=== PATIENT | female | born 1960 | race Caucasian/White ===

== ENCOUNTER 2024-01-10 01:29 | Day surgery (SDC) | payer OTHER, SELFPAY ==
[2023-12-30 09:13] VITALS: BMI 35.2
[2024-01-10 07:46] VITALS: BP 120/95; PULSE 88; RESP 16; TEMP 36.5; O2SAT 99; BMI 35.0
[2024-01-10] MEDS: LACTATED RINGERS 1,000 ML 150 ML IV CONT (07:55)
--- NOTE | 2024-01-10 09:02 | PM.IMHP ---
H&P: HPI History of Present Illness Date/Time: 01/10/24 09:02 Chief Complaint: Family history of colorectal cancer. Narrative: This patient has family history of colorectal cancer. Her father had colorectal cancer at age 82. The patient is asymptomatic from GI standpoint, denies bleeding change in bowel habits or abdominal pain. Review of Systems Review of Systems: All systems reviewed & are unremarkable except as noted in HPI and below PMFSH Social History Social History Smoking status: Current every day smoker Tobacco type: cigarettes Substance use type: does not use Living arrangements: with family Spiritual care concerns: No Meds Home Medications and Allergies Home Medications Medication Instructions Recorded Confirmed Type levothyroxine 125 mcg tablet 125 mcg PO DAILY 12/30/23 01/10/24 History Allergies Allergy/AdvReac Type Severity Reaction Status Date / Time No Known Allergies Allergy Verified 01/10/24 07:44 Vital Signs Vital Signs - 24 hr 01/10/24 07:46 Temperature 97.7 F Pulse Rate 88 Respiratory Rate 16 Blood Pressure 120/95 H Pulse Oximetry 99 Oxygen Delivery Room Air Exam Const: General: cooperative and healthy appearing Resp: Effort & Inspection: normal respiratory effort and able to speak in complete sentences Auscultation: clear to auscultation bilaterally Cardio: Rate: regular rate Rhythm: regular rhythm GI: Inspection: normal to inspection GI Palp: No No hepatosplenomegaly present Auscultation: normal bowel sounds Rectal Exam: deferred Skin: General skin exam: normal color Psych: Appearance: grossly normal Mental Status: mental status grossly normal Assessment and Plan Assessment and plan (1) Family history of colon cancer: Code(s): Z80.0 - Family history of malignant neoplasm of digestive organs Status: Acute Assessment and Plan: The patient is deemed a good candidate for the procedure. Consent signed. Will proceed.
--- NOTE | 2024-01-10 09:21 | WPDANESEPPF ---
Anes - Initial Pre Proc Eval Procedure: Operation Date: 01/10/24 09:00 Proposed Procedures p Colonoscopy - Pa Fritz MD Date/Time: 01/10/24 09:21 Surgeon: Pa Fritz MD Pre Op Diagnosis: family hx of cancer Patient Data Age: 63 Gender: F Height: 1.52 m Weight: 81.4 kg Last Vital Signs Temp 97.7 F 01/10/24 07:46 Pulse 88 01/10/24 07:46 Resp 16 01/10/24 07:46 BP 120/95 H 01/10/24 07:46 Pulse Ox 99 01/10/24 07:46 O2 Del Method Room Air 01/10/24 07:46 Allergies Allergy/AdvReac Type Severity Reaction Status Date / Time No Known Allergies Allergy Verified 01/10/24 07:44 Home Medications Medication Instructions Recorded Confirmed Type levothyroxine 125 mcg tablet 125 mcg PO DAILY 12/30/23 01/10/24 History Patient hx anesthesia problems: none Family hx anesthesia problems: none Results Review: All pre-operative results and documents have been reviewed as part of the pre-operative evaluation. [facility] Social History Social History Smoking status: Current every day smoker Tobacco type: cigarettes Substance use type: does not use Living arrangements: with family Spiritual care concerns: No Anes - Eval Final PreProcedure Day of Procedure 01/10/24 09:21 Patient weight: obese Heart: regular rate and rhythm Lungs: clear to auscultation Airway: Mallampati scale class II Neurological: alert and oriented Last oral intake: >/= 8 hours ASA classification: III Emergent: no Anesthetic plan: proceed Anesthesia type and monitoring: general GIVS and standard monitoring Results Review: All pre-operative results and documents have been reviewed as part of the pre-operative evaluation. Informed Consent: The patient's anesthetic plan and its attendant risks and benefits were discussed with the patient/family/POA. Questions were solicited and answers provided to the satisfaction of the patient/family/POA.
[2024-01-10] MEDS: SIMETHICONE ORAL SUSPENSION 20 MG/0.3 ML 30 ML BOTTLE 0.6 ML IRRIGATION (09:39)
[2024-01-10 10:15] VITALS: BP 100/63; PULSE 71; RESP 14; O2SAT 100
[2024-01-10 10:25] VITALS: BP 103/69; PULSE 67; RESP 16; O2SAT 100
[2024-01-10 10:35] VITALS: BP 121/71; PULSE 70; RESP 16; O2SAT 100
== END 2024-01-10 10:50 | disposition home or self-care (01) ==
PROVIDERS: PCP Nurse Practitioner Family; Referring Provider Nurse Practitioner Family; Visit Provider Internal Medicine Gastroenterology
PROC: 0DJD8ZZ Inspection of Lower Intestinal Tract, Via Natural or Artificial Opening Endoscopic (ICD-10-PCS; CPT 45378; principal; 2024-01-10 09:00)
DX: Z12.11 Encounter for screening for malignant neoplasm of colon (principal); K63.5 Polyp of colon; K64.8 Other hemorrhoids; Z80.0 Family history of malignant neoplasm of digestive organs; F17.210 Nicotine dependence, cigarettes, uncomplicated; E66.9 Obesity, unspecified; Z68.35 Body mass index [BMI] 35.0-35.9, adult
CPT/HCPCS: 45390; 88305; J2704; J7120

== ENCOUNTER 2025-02-05 01:38 | Day surgery (SDC) | payer OTHER, SELFPAY ==
[2025-01-20 11:32] VITALS: BMI 36.9
--- OUTSIDE RECORDS SUMMARY | 2025-02-05 01:41 | XMS_ITS | Clinical Summary ---
Author Organization [facility] Address Formerly [facility] [place] [address] Care Team Providers Care Box Closing Machine Operator Name Role Phone Tylor Dumont SALESPERSON FLOOR COVERINGS Primary Care Provider Allergies No known active allergies Medications levothyroxine 125 MCG tablet Take 125 mcg by mouth every morning. Active Social History Tobacco Use Types Packs/Day Years Used Date Smoking Tobacco: Every Day Cigarettes 0.5 20 Smokeless Tobacco: Never Alcohol Use Standard Drinks/Week Comments Yes 6.7 (1 standard drink = 0.6 oz p ure alcohol) Comments No Sex and Gender Information Value Date Recorded Sex Assigned at Not on file Legal Sex Female 8:16 AM CDT Gender Identity Not on file Sexual Orientation Not on file Last Filed Vital Signs Vital Sign Reading Time Taken Comments Blood Pressure 136/80 12/12/2019 8:35 AM CDT Pulse 86 12/12/2019 8:35 AM CDT Temperature 36.5 C (97.7 F) 12/12/2019 8:35 AM CDT Respiratory Rate 18 12/12/2019 8:35 AM CDT Oxygen Saturation 97% 12/12/2019 8:35 AM CDT Inhaled Oxygen Concentration - - Weight 81.6 kg (180 lb) 12/12/2019 8:35 AM CDT Height 149.9 cm (4' 11) 12/12/2019 8:35 AM CDT Body Mass Index 36.36 12/12/2019 8:35 AM CDT Plan of Treatment Health Maintenance Due Date Last Done Comments Cervical Cancer Screening Pa p Smear (Age 30 to 64) Every 3 Years 1962 Colorectal Cancer Screening Colonoscopy (10 Years) 1962 Annual Physical 1965 Hepatitis C 1980 DTaP, Tdap and Td Vaccines ( 1 - Tdap) 1981 Pneumococcal Vaccine: 50+ Ye ars (1 of 2 - PCV) 1981 Cervical Cancer Screening Pa p with HPV Testing (Age 30 to 64) Every 5 Years 1992 Cervical Cancer Screening with HPV 1992 Mammogram Screening 2002 Zoster Vaccines (1 of 2) 2012 COVID-19 Vaccine ( - 2024-2 6 season) 2024 Influenza Adult (#1) 2024 RSV Immunization or 60+ Years (1 - 1-dose 75+ series) 2037 Hepatitis A Vaccines Aged Out No long er eligible based on patient's age to complete this topic Meningococcal B Vaccine Aged Out No l onger eligible based on patient's age to complete this topic Meningococcal Vaccine Aged Out No rehana deshaun eligible based on patient's age to complete this topic RSV Immunizations Under 20 Months Aged Out No longer eligible based on patient's age to complete this topic Insurance NA Care Teams Box Closing Machine Operator Relationship Specialty Start Date End Date Tylor Dumont FNP PCP - General Nurse Practitioner Family 12/12/19
--- OUTSIDE RECORDS SUMMARY | 2025-02-05 01:41 | XMS_ITS ---
Author Organization [facility] Address [address] [place] [address] Care Team Providers Care Utility Tech Name Role Phone Vy Amezcua MD Unavailable [phone] Sofía Moser NP Primary Care Provider [phone] Active Problems Problem Noted Date Diagnosed Date Annual physical exam 01/13/2025 Assessment & Plan (01/13/2025 7:59 AM PRODUCE LABORER): Slow transit constipation 05/17/2023 Assessment & Plan (05/17/2023 5:06 PM CDT): Add fiber supplement, probiotic Stay hydrated Discussed Fleet enema, may be helpful if things aren't moving after laxative Miralax I would prefer over senna (as it is a gentler osmotic laxative rather than a cathartic) Trulance trial as well Tobacco use 04/05/2022 Assessment & Plan (01/13/2025 7:59 AM PRODUCE LABORER): Taking bupropion to help with smoking cessation. She has cut back quite a bit Orders: buPROPion SR (ZYBAN) 150 mg 12 hr tablet; Take 1 tablet (150 mg total) by mouth 2 (two) times a day Assessment & Plan (10/10/2023 8:28 AM CDT): Has decreased tobacco use since being on the Zyban, was smoking about 1 ppd and now down to 2 packs per week. Assessment & Plan (04/05/2022 10:38 AM PRODUCE LABORER): On average smokes approximately 1/2 pack of cigarettes per day. She is interested in smoking cessation/medication. Discussed Zyban, education provided. Will send in to trial. Class 2 severe obesity due t o excess calories with serious comorbidity and body mass index (BMI) of 39.0 to 39.9 in adult 04/24/2021 Assessment & Plan (01/13/2025 7:59 AM PRODUCE LABORER): Finds that buproprion helps with cravings quite a bit. Wants to continue Assessment & Plan (10/04/2022 8:17 AM CDT): Healthy, low carbohydrate lifestyle and exercise for 150min/week recommended Assessment & Plan (04/05/2022 10:41 AM PRODUCE LABORER): Healthy, low carbohydrate lifestyle and exercise for 150min/week recommended Assessment & Plan (04/24/2021 4:47 PM PRODUCE LABORER): Food diary for 2 weeks. Look at carbohydrates, fats, and snack foods she is getting into.' Look at fluids she is taking. Note increase exercise as tolerated. Hoping to bring this up to 30 minute sessions 3 times a week. 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 Assessment & Plan (04/24/2021 4:38 PM PRODUCE LABORER): Continue to check your feet on a daily basis. Wear good shoes, avoid falling. Walk, do not shuffle. No high heels, flip flops, etc. Hypothyroidism, unspecified 01/19/2021 Assessment & Plan (01/13/2025 7:59 AM PRODUCE LABORER): Assessment & Plan (10/10/2023 8:27 AM CDT): Will recheck labs, continue with Synthroid 125 mcg daily. Assessment & Plan (10/04/2022 8:25 AM CDT): Will recheck labs, continue with Synthroid 125 mcg daily. Assessment & Plan (04/05/2022 10:40 AM PRODUCE LABORER): Due for recheck of level, ordered. Needs refill and wants brand name vs generic name as she feels it works better. Awaiting results so can send in adjustment if needed. Assessment & Plan (04/24/2021 4:36 PM PRODUCE LABORER): Continue with medications as ordered. Exercise as tolerated 3 times a week for 30 mnutes. Eat balanced, adequate fluids. Ovarian cancer on right 10/03/2020 Assessment & Plan (01/13/2025 7:59 AM PRODUCE LABORER): Orders: CA 125; Future Assessment & Plan (04/05/2022 10:39 AM PRODUCE LABORER): Has been in remission x 1 year Continues follow up labs and imaging per Oncology. Assessment & Plan (01/19/2021 7:23 PM PRODUCE LABORER): Continue with chemotherapy as directed by Oncologist. Current Treatment and Therapy Plans IV MAINTENANCE THERAPY PLAN* Plan Start Date:11/21/2020 Plan Provider:Мария Weber MD PhD Linked Problems Ovarian cancer on right (HCC ) Treatment Medications No medications scheduled. Past Treatment and Therapy Plans Oncology Chemotherapy Treatment Plan Name Start Date Discontinue Date Treatment Medications Discontinue Reason Plan Provider Cycles PACLItaxel / CARBOplatin (AUC 5) 21 Day Cycles - SLOPE TENDER 1 04/10/2021 CARBOplatin (by AUC:GOG) (PARAPLATIN)CA RBOplatin (PARAPLATIN) IVPB in 250 mL (by AUC: GOG)PACLitaxel (TAXOL)PACLIta xel (TAXOL) IVPB in 500 mL Provider Discretion Мария Weber MD PhD 6 of 6 cycles started Lifetime Dose Tracking * Chemical Lifetime Dose Automatic Entry Manual Entr y Fluoro Time 1.1 minutes 1.1 minutes 0 minutes Air kerma at the reference point (Ka,r) 0.5 mGy 0 .5 mGy 0 mGy DLP 4,586 mGycm 4,586 mGycm 0 mGycm Resolved Problems Problem Noted Date Diagnosed Date Resolved Date Class 2 obesity due to exces s calories without serious comorbidity in adult 04/24/202108/2021 Acute pain of right knee 04/24/2021 Assessment & Plan (04/24/2021 4:53 PM PRODUCE LABORER): Xray of right knee today. Ice alt. Heat 10-15 min. 2-3 times a day. No high heels. Tylenol As needed. Avoid climbing, stairs, ladders, no jumping activities. May use pascual wrap if needed for support. Chemotherapy management, encounter for 02/06/2021 01/13/2025 Morbid obesity with BMI of 45.0-49.9, adult 01/19/2021 01/19/2021 Assessment & Plan (01/19/2021 7:25 PM PRODUCE LABORER): Will refill thyroid med , Levothyroxine 125mcg one daily. Will get TSH level in 3 months. Localized adiposity of abdomen 01/19/2021 01/13/2025 Assessment & Plan (01/19/2021 7:29 PM PRODUCE LABORER): Encouraged to eat balanced. Not to diet at this time. Encouraged to not worry about weight at this time do to cancer treatment. Adnexal mass 09/25/2020 01/13/2025 Overview (09/25/2020): Added automatically from request for surgery [id number] Assessment & Plan (01/19/2021 7:21 PM PRODUCE LABORER): Continues with care by Oncology Had CT recently showing no issues. Encouraged her to finish Chemo and follow up with specialist..
--- OUTSIDE RECORDS SUMMARY | 2025-02-05 01:41 | XMS_ITS | Clinical Summary ---
Author Organization [facility] C Address [address] [place] [address] Care Team Providers Care Automotive Design Layout Drafter Name Role Phone Vy Amezcua MD Unavailable [phone] Sofía Moser NP Primary Care Provider Allergies No known active allergies Medications levothyroxine (SYNTHROID) 125 mcg tablet TAKE 1 TABLET BY MOUTH SIGNALS ANALYST BEFORE BREAKFAST 90 tablet 1 01/12/20 25 Active buPROPion SR (ZYBAN) 150 mg 12 hr tabletIndicatio ns:Tobacco use Take 1 tablet (150 mg total) by mouth 2 (two) times a day 180 tablet 3 01/14/20 25 Active ibuprofen (ADVIL,MOTRIN) suspension 100 mg/5 mL Take by mouth every 4 (four) hours as needed for pain 025 Discontinued( erapy completed) benzonatate (TESSALON) 100 mg capsuleIndicati ons:Cough Take 1 capsule (100 mg total) by mouth 3 (three) times a day as needed for cough 42 capsule 01/16/20 23 025 Discontinued( erapy completed) plecanatide (Trulance) 3 mg tabletIndicatio ns:Slow transit constipation Take 1 tablet (3 mg total) by mouth daily 6 tablet 03/29/20 24 11/26/2 025 Discontinued(Th erapy completed) buPROPion SR (ZYBAN) 150 mg 12 hr tabletIndicatio ns:Tobacco use TAKE 1 TABLET BY MOUTH TWICE A DAY 200 tablet 06/23/19 025 Discontinued(Re order) levothyroxine (SYNTHROID) 125 mcg tablet TAKE 1 TABLET (125 MCG TOTAL) BY MOUTH SIGNALS ANALYST BEFORE BREAKFAST 30 tablet 12/17/19 025 Discontinued Active Problems Problem Noted Date Diagnosed Date Annual physical exam 01/13/2025 Assessment & Plan (01/13/2025 7:59 AM PRESSED OR BLOWN GLASS WORKER): Slow transit constipation 05/17/2023 Assessment & Plan (05/17/2023 5:06 PM CDT): Add fiber supplement, probiotic Stay hydrated Discussed Fleet enema, may be helpful if things aren't moving after laxative Miralax I would prefer over senna (as it is a gentler osmotic laxative rather than a cathartic) Trulance trial as well Tobacco use 04/05/2022 Assessment & Plan (01/13/2025 7:59 AM PRESSED OR BLOWN GLASS WORKER): Taking bupropion to help with smoking cessation. [...] week. Assessment & Plan (04/05/2022 10:38 AM PRESSED OR BLOWN GLASS WORKER): On average smokes approximately 1/2 pack of cigarettes per day. She is interested in smoking cessation/medication. Discussed Zyban, education provided. Will send in to trial. Class 2 severe obesity due t o excess calories with serious comorbidity and body mass index (BMI) of 39.0 to 39.9 in adult 04/24/2021 Assessment & Plan (01/13/2025 7:59 AM PRESSED OR BLOWN GLASS WORKER): Finds that buproprion helps with cravings quite a bit. Wants to continue Assessment & Plan (10/04/2022 8:17 AM CDT): Healthy, low carbohydrate lifestyle and exercise for 150min/week recommended Assessment & Plan (04/05/2022 10:41 AM PRESSED OR BLOWN GLASS WORKER): Healthy, low carbohydrate lifestyle and exercise for 150min/week recommended Assessment & Plan (04/24/2021 4:47 PM PRESSED OR BLOWN GLASS WORKER): Food diary for 2 weeks. Look at carbohydrates, fats, and snack foods she is getting into.' Look at fluids she is taking. Note increase exercise as tolerated. Hoping to bring this up to 30 minute sessions 3 times a week. 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 Assessment & Plan (04/24/2021 4:38 PM PRESSED OR BLOWN GLASS WORKER): Continue to check your feet on a daily basis. Wear good shoes, avoid falling. Walk, do not shuffle. No high heels, flip flops, etc. Hypothyroidism, unspecified 01/19/2021 Assessment & Plan (01/13/2025 7:59 AM PRESSED OR BLOWN GLASS WORKER): Assessment & Plan (10/10/2023 8:27 AM CDT): Will recheck labs, continue with Synthroid 125 mcg daily. Assessment & Plan (10/04/2022 8:25 AM CDT): Will recheck labs, continue with Synthroid 125 mcg daily. Assessment & Plan (04/05/2022 10:40 AM PRESSED OR BLOWN GLASS WORKER): Due for recheck of level, ordered. Needs refill and wants brand name vs generic name as she feels it works better. Awaiting results so can send in adjustment if needed. Assessment & Plan (04/24/2021 4:36 PM PRESSED OR BLOWN GLASS WORKER): Continue with medications as ordered. Exercise as tolerated 3 times a week for 30 mnutes. Eat balanced, adequate fluids. Ovarian cancer on right 10/03/2020 Assessment & Plan (01/13/2025 7:59 AM PRESSED OR BLOWN GLASS WORKER): Orders: CA 125; Future Assessment & Plan (04/05/2022 10:39 AM PRESSED OR BLOWN GLASS WORKER): Has been in remission x 1 year Continues follow up labs and imaging per Oncology. Assessment & Plan (01/19/2021 7:23 PM PRESSED OR BLOWN GLASS WORKER): Continue with chemotherapy as directed by Oncologist. Resolved Problems Problem Noted Date Diagnosed Date Resolved Date Class 2 obesity due to exces s calories without serious comorbidity in adult 04/24/202108/2021 Acute pain of right knee 04/24/2021 Assessment & Plan (04/24/2021 4:53 PM PRESSED OR BLOWN GLASS WORKER): Xray of right knee today. Ice alt. Heat 10-15 min. 2-3 times a day. No high heels. Tylenol As needed. Avoid climbing, stairs, ladders, no jumping activities. May use pascual wrap if needed for support. Chemotherapy management, encounter for 02/06/2021 01/13/2025 Morbid obesity with BMI of 45.0-49.9, adult 01/19/2021 01/19/2021 Assessment & Plan (01/19/2021 7:25 PM PRESSED OR BLOWN GLASS WORKER): Will refill thyroid med , Levothyroxine 125mcg one daily. Will get TSH level in 3 months. Localized adiposity of abdomen 01/19/2021 01/13/2025 Assessment & Plan (01/19/2021 7:29 PM PRESSED OR BLOWN GLASS WORKER): Encouraged to eat balanced. Not to diet at this time. Encouraged to not worry about weight at this time do to cancer treatment. Adnexal mass 09/25/2020 01/13/2025 Overview (09/25/2020): Added automatically from request for surgery [id number] Assessment & Plan (01/19/2021 7:21 PM PRESSED OR BLOWN GLASS WORKER): Continues with care by Oncology Had CT recently showing no issues. Encouraged her to finish Chemo and follow up with specialist.. Encounters Date Type Department Care Team Description 01/13/2025 7:30 AM PRESSED OR BLOWN GLASS WORKER Office Visit [facility] Primary Care at [address] [address] Krystal Galvan NP Annual physical exam (Primary Dx); Visit for screening mammogram; Class 2 severe obesity due to excess calories with serious comorbidity and body mass index (BMI) of 39.0 to 39.9 in adult; Acquired hypothyroidism; Ovarian cancer on right (HCC); Screening for deficiency anemia; Screening for metabolic disorder; Lipid screening; Thyroid disorder screen; Screening for diabetes mellitus; Tobacco use from Last 3 Months Immunizations Immunization Administration Dates Next Due Influenza, Unspecified 02/18/2023(Deferr ed: Patient Refused),10/04/2022(Deferred: Patient Refused),02/18/2022(Deferred: Patient Refused),02/18/2022(Deferred: Patient Refused),04/18/2021(Deferred: Patient Refused),02/18/2021(Deferred: Patient Refused),01/03/2020(Deferred: Patient Refused) Moderna SARS-CoV-2 Monovalen t Vaccination (12+ YRS) 11/17/2020 Surgical History Surgery Date Site/Laterality Comments DILATION AND CURETTAGE, DIAGNOSTIC / THERAPEUTIC 02/18/2002 - 02/17/2003 for miscarriage at 16 weeks BREAST BIOPSY 02/18/1997 - 02/17/1998 Left breast, benign cyst CERVIX LESION DESTRUCTION 02/18/1981 - 02/17/1982 PORT PLACEMENT CHEST >5 YEARS 10/28/2020 N/A HYSTERECTOMY ABDOMINAL SURGERY 09/26/2020 Medical History Medical History Date Comments Hypothyroidism Ovarian cancer (HCC) History of chemotherapy Family History Medical History Relation Name Comments Cancer Father Rafael Mc Colon cancer Father Rafael Mc Breast cancer Neg Hx Ovarian cancer Neg Hx Uterine cancer Neg Hx Relation Name Status Comments Father Rafael Mc Mother Alive Social History Tobacco Use Types Packs/Day Years Used Date Smoking Tobacco: Former Cigarettes 0.5 5 Passive Smoke Exposure: Current Smokeless Tobacco: Never Comments:quit for 2 yrs, the n restarted 2018 Alcohol Use Standard Drinks/Week Comments Yes 0 (1 standard drink = 0.6 oz pur e alcohol) socially AUDIT-C Answer Date Recorded Q1: How often do you have a drink containing alc ohol? Monthly or less 08/15/2021 Q2: How many drinks containi ng alcohol do you have on a typical day when you are drinking? 1 or 2 08/15/2021 Q3: How often do you have si x or more drinks on one occasion? Less than monthly 08/15/2021 PHQ-2 Answer Date Recorded PHQ-2 Total Score (If total score is 3 or more points, staff should administer the PHQ-9) 0 01/13/2025 Comments No Sex and Gender Information Value Date Recorded Sex Assigned at Not on file Legal Sex Female 3:36 PM PRESSED OR BLOWN GLASS WORKER Gender Identity Not on file Sexual Orientation Not on file Obstetrics History Para Term AB IAB SAB Ectopic Multiple Livin g Live Births 4 3 3 3 Date Outcome GA Total Labor Labor/2nd/3rd Weight Sex Type Anes PTL Val A1 A5 Name Clin Term Term Term Comments x3 Last Filed Vital Signs Vital Sign Reading Time Taken Comments Blood Pressure 124/76 01/13/2025 7:39 AM PRESSED OR BLOWN GLASS WORKER Pulse 84 01/13/2025 7:39 AM PRESSED OR BLOWN GLASS WORKER Temperature 36.4 C (97.5 F) 01/13/2025 7:39 AM PRESSED OR BLOWN GLASS WORKER Respiratory Rate 18 01/13/2025 7:39 AM PRESSED OR BLOWN GLASS WORKER Oxygen Saturation 99% 01/13/2025 7:39 AM PRESSED OR BLOWN GLASS WORKER Inhaled Oxygen Concentration - - Weight 91.4 kg (201 lb 6.4 oz) 01/13/2025 7:39 A M PRESSED OR BLOWN GLASS WORKER Height 152.4 cm (5') 01/13/2025 7:39 AM PRESSED OR BLOWN GLASS WORKER Body Mass Index 39.33 01/13/2025 7:39 AM PRESSED OR BLOWN GLASS WORKER Plan of Treatment Health Maintenance Due Date Last Done Comments DTaP/Tdap/Td Vaccine (1 - Tdap) 1973 Hepatitis B Screening 1980 Zoster Vaccine (1 of 2) 2012 Covid-19 Vaccine (3 - Moderna risk series) 12/15/2020 11/17/2020, 10/10/2020 Breast Cancer Screening-Mammogram 06/24/2024 06/25/2023, 01/16/2022, 12/18/2021 Colon Cancer Screening-Colonoscopy 01/09/2025 01/10/2024, 03/28/2018 Depression Screening 01/13/2026 01/13/2025, 10/10/2023, 05/15/2023, Additional history exists Regular Well Visit/Exam 18-64 01/13/2026 01/13/2025, 10/10/2023 Cervical Cancer Screening Discontinued 09/22/2020 Hepatitis C Screening Completed 04/05/2022 Influenza Vaccine Discontinued Pneumococcal vaccine <65 Aged Out No longer eligible based on patient's age to complete this topic Medical Devices Implanted Type Area Rubber Curer Device Identifier Shelf Expiration Date Model / Serial / Lot [employer] [id number] Xcela 8fr 1.6mm 1 Lumen Power Injectable Attach Catheter Fill - [id number] Implanted:Qty: 1 on 10/28/2020 at [facility] [employer] 08/16/2025 [id number] / / [id number] Procedures Procedure Name Priority Date/Time Associated Diagnosis Comments HM COLONOSCOPY Routine 01/10/2024 8:19 AM PRESSED OR BLOWN GLASS WORKER DIAGNOSTIC MAMMOGRAM BILATERAL W JAC[place]TO Schedule Routine, Read Routine (OP Routine) 06/25/2023 9:12 AM CDT Breast mass, left HEPATITIS C ANTIBODY Routine 04/05/2022 9:06 AM PRESSED OR BLOWN GLASS WORKER Encounter for hepatitis C screening test for low risk patient PAP ONLY Routine 09/22/2020 2:20 PM CDT Routine gynecological examination from Last 3 Months or Most Recently Relevant to Health Maintenance Results * HM COLONOSCOPY (01/10/2024 8:19 AM PRESSED OR BLOWN GLASS WORKER) Pa Fritz MD HEALTH MAINTENANCE Fin al Result * Diagnostic Mammogram Bilateral [place] (06/25/2023 9:12 AM CDT) Anatomical Region Laterality Modality Breast Bilateral Mammography 06/25/2023 9:25 AM CDT Narrative 06/25/2023 9:30 AM CDT EXAM DESCRIPTION: US BREAST LEFT LIMITED; DIAGNOSTIC MAMMOGRAM BILATERAL W JACINTO REASON FOR STUDY: 63-year-old female presents for follow-up of a probably benign left breast mass and for annual right screening mammogram. COMPARISON: 07/18/2022, 01/16/2022, 12/18/2021 TECHNIQUE: CC and MLO views of the bilateral breasts were obtained with digital technique using breast tomosynthesis with C view. Limited ultrasound of the left breast was performed with grayscale and color Doppler. FINDINGS: DENSITY: There are scattered areas of fibroglandular density. MAMMOGRAM FINDINGS: The probably benign 4 mm oval circumscribed mass at the 5 o'clock position of the left breast, middle depth, has not suspiciously changed. There is also an unchanged benign left intramammary lymph node at the 3 o'clock position, middle depth. There is no new suspicious finding in either breast on mammogram. ULTRASOUND FINDINGS: Targeted ultrasound of the left breast at 5 o'clock, 5 cm from the nipple demonstrates a 3 x 4 x 4 mm circumscribed mass with mixed hypoechoic and anechoic internal echotexture, no posterior acoustic enhancement or shadowing, and no internal blood flow on color Doppler. This mass has not suspiciously changed in size or appearance since December 2021. IMPRESSION: 1. Unchanged probably benign 4 mm mass at the 5 o'clock position of the left breast (5 cm from the nipple). This is favored to represent a benign complicated cyst. Follow-up left diagnostic mammogram and left breast ultrasound in 6 months are recommended to assess for continued stability. 2. No mammographic evidence of malignancy in the right breast. Recommend screening mammography of the right breast in 1 year. BIRADS: 3 - Probably benign finding, short-interval follow-up suggested. The patient has been notified of these results and recommendations. THIS IS AN ELECTRONICALLY VERIFIED FINAL REPORT 06/25/2023 9:30 AM - Electronically signed by Temo Romano M.D. MD: Report ID: [id number] Reading Location: [facility] Tyron Pearson MD IMG MAMMO PROCEDURES Fin al Result * Hepatitis C antibody (04/05/2022 9:06 AM PRESSED OR BLOWN GLASS WORKER) Hep C Ab Nonreactive Nonreactive [facility] Comment: Interpretive Data Nonreactive: Antibodies to HCV not detected. Does NOT exclude the possibility of recent exposure to HCV. Equivocal: Equivocal for HCV antibodies. Supplemental molecular testing will be automatically performed to determine infection status in accordance with current CDC screening recommendations. Reactive: Positive for HCV antibodies. This may represent current or past HCV infection. Supplemental molecular testing will be automatically performed to determine current infection status in accordance with current CDC screening recommendations. Interpretive data was last revised on 2019. Blood 04/05/2022 9:06 AM PRESSED OR BLOWN GLASS WORKER 04/05/2022 2:42 PM PRESSED OR BLOWN GLASS WORKER Sofía Moser NP LAB MICROBIOLOGY - GENERAL ORDER JUSTINA Final Result [facility] [id number] Department [place] [address] * Pap Only (09/22/2020 2:20 PM CDT) Pathologist [facility] CLINICAL INFORMATION: Roni Selby Comment:Routine exam LMP Roni Selby Comment:NA Previous Pap Roni Selby Comment:NONE GIVEN Prev. Bx Roni Selby Comment:NONE GIVEN SOURCE: Roni Selby Comment:Cervix, Endocervix Pap, specimen adequacy Roni Selby Comment: Satisfactory for evaluation. Endocervical/transformation zone component present. Age and/or menstrual status not provided HPV interp Roni Selby Comment:Negative for intraep ithelial lesion or malignancy. Infection: Roni Selby Comment: Shift in vaginal jessica suggestive of bacterial vaginosis. Barrel Filler Head Juan Vicente Comment: KMK, CT(ASCP) CT Screening location: [facility] [place] [address] [address] Review mapping specialist Roni Selby Comment: AMW, CT(ASCP) CT screening location: [place] [address] [address] [id number] Comment [facility]ster[facility] Selby Comment: EXPLANATORY NOTE: The Pap is a screening test for cervical cancer. It is not a diagnostic test and is subject to false negative and false positive results. It is most reliable when a satisfactory sample, regularly obtained, is submitted with relevant clinical findings and history, and when the Pap result is evaluated along with historic and current clinical information. Swab 09/22/2020 2:20 PM CDT 09/23/2020 3:35 AM CDT Sarah Cardoza NP LAB CYTOLOGY ORDERABLES Final Result [facility] [address] [id number] from Last 3 Months or Most Recently Relevant to Health Maintenance Insurance PPO T SELECT AETNA SIG [id number] AETNA SELECT Advance Directives For more information, please contact: [phone] * Full Code (Latest Code Status on File) Date Activated Date Inactivated Comments 10/28/2020 11:51 AM 10/28/2020 6:09 PM * Full Code Date Activated Date Inactivated Comments 09/26/2020 9:34 PM 09/29/2020 8:04 PM * Full Code Date Activated Date Inactivated Comments 09/25/2020 7:05 PM 09/26/2020 9:34 PM Care Teams Automotive Design Layout Drafter Relationship Specialty Start Date End Date Sofía Moser NP PCP - General Family Medicine 04/05/22 Vy Amezcua MD Consulting Physician Obstetrics and Gynecology 01/23/21
[2025-02-05 09:52] VITALS: BP 142/93; PULSE 81; RESP 16; TEMP 36.3; O2SAT 100; BMI 38.0
[2025-02-05] MEDS: LACTATED RINGERS 1,000 ML 150 ML IV CONT (10:13)
--- NOTE | 2025-02-05 10:25 | P.HP_ITS ---
H&P: HPI History of Present Illness Date/Time: 02/05/25 10:25 Chief Complaint: Family history of colon cancer-history of sessile serrated polyps Narrative: Last year the patient underwent resection of 2 sessile serrated lesions in the ascending and descending colon respectively. She comes today for follow-up colonoscopy. Review of Systems Review of Systems: All systems reviewed & are unremarkable except as noted in HPI and below PMFSH Social History Social History Years smoked: 20 Smoking status: Current every day smoker Tobacco type: cigarettes Alcohol intake: current Drinks per week: 2 Substance use: never Substance use type: does not use Living arrangements: other Additional living arrangements comments: significant other Spiritual care concerns: No Meds Home Medications and Allergies Home Medications ?Medication ?Instructions ?Recorded ?Confirmed ?Type levothyroxine 125 mcg tablet 125 mcg PO DAILY 12/30/23 02/05/25 History Allergies Allergy/AdvReac Type Severity Reaction Status Date / Time No Known Allergies Allergy Verified 02/05/25 09:51 Vital Signs Vital Signs - 24 hr 02/05/25 09:52 Temperature 97.4 F L Pulse Rate 81 Respiratory Rate 16 Blood Pressure 142/93 H Pulse Oximetry 100 Oxygen Delivery Room Air Exam Const: General: cooperative and healthy appearing Resp: Effort & Inspection: normal respiratory effort and able to speak in complete sentences Auscultation: clear to auscultation bilaterally Cardio: Rate: regular rate Rhythm: regular rhythm GI: Inspection: normal to inspection GI Palp: No No hepatosplenomegaly pr esent Auscultation: normal bowel sounds Rectal Exam: deferred Skin: General skin exam: normal color Psych: Appearance: grossly normal Mental Status: mental status grossly normal Assessment and Plan Assessment and plan (1) Family history of colon cancer: Code(s): Z80.0 - Family history of malignant neoplasm of digestive organs Status: Acute Assessment and Plan: The patient is deemed a good candidate for the procedure. Consent signed. Will proceed. Prior Studies I have reviewed the following patient records and this information was taken into consideration when formulating the assessment and plan.: previous labs, previous ER visits, previous hospitalizations and previous clinic visits
--- NOTE | 2025-02-05 10:45 | P.PNAN_ITS ---
Anes - Initial Pre Proc Eval Procedure: Operation Date: 02/05/25 11:00 Proposed Procedures p Screening Colonoscopy - Pa Fritz MD Date/Time: 02/05/25 10:45 Surgeon: Pa Fritz MD Pre Op Diagnosis: screening Pre Op Diagnosis: Family history of malignant neoplasm of digestive Patient Data Age: 64 Gender: F Height: 1.52 m Weight: 88.4 kg Last Vital Signs Temp 36.3 C L 02/05/25 09:52 Pulse 81 02/05/25 09:52 Resp 16 02/05/25 09:52 BP 142/93 H 02/05/25 09:52 Pulse Ox 100 02/05/25 09:52 O2 Del Method Room Air 02/05/25 09:52 Allergies Allergy/AdvReac Type Severity Reaction Status Date / Time No Known Allergies Allergy Verified 02/05/25 09:51 Home Medications ?Medication ?Instructions ?Recorded ?Confirmed ?Type levothyroxine 125 mcg tablet 125 mcg PO DAILY 12/30/23 02/05/25 History Patient hx anesthesia problems: none Family hx anesthesia problems: none Results Review: All pre-operative results and documents have been reviewed as part of the pre- operative evaluation. [facility] Social History Social History Years smoked: 20 Smoking status: Current every day smoker Tobacco type: cigarettes Alcohol intake: current Drinks per week: 2 Substance use: never Substance use type: does not use Living arrangements: other Additional living arrangements comments: significant other Spiritual care concerns: No Comments history of ovarian cancer (hysterectomy) Anes - Eval Final PreProcedure Day of Procedure 02/05/25 10:45 Patient weight: normal Heart: regular rate and rhythm Lungs: clear to auscultation and normal air movement Airway: Mallampati scale class II Neurological: alert and oriented Last oral intake: >/= 8 hours ASA classification: II Emergent: no Anesthetic plan: proceed Anesthesia type and monitoring: general GIVS and standard monitoring Results Review: All pre-operative results and documents have been reviewed as part of the pre- operative evaluation. Informed Consent: The patient's anesthetic plan and its attendant risks and benefits were discussed with the patient/family/POA. Questions were solicited and answers provided to the satisfaction of the patient/family/POA.
--- NOTE | 2025-02-05 11:07 | S_PTH ---
PATIENT: Iman Mc LOC: [facility]#:[id number] AGE/SX: 64/F ROOM: RE02/05/[address]: Pa Fritz MD : 1960 BED: DIS: 02/05/2025 SPEC #: [id number] RECD: 02/05/25 11:35 STATUS: LAURA REYony #: [id number] MICKY: 02/05/25 11:[address]: Pa Fritz DEPT: [facility] Surgical RECD BY: Rochelle Swan ENTERED: 02/05/25 11:35 SP TYPE: Surgical OTHR DR: Sofía Moser, FACILITATOR Tissues: A - Colon Polypectomy Procedures: Hematoxylin and Eosin Stain Gross and Microscopic Level 4
[2025-02-05 11:16] VITALS: BP 110/71; PULSE 88; RESP 16; O2SAT 98
[2025-02-05 11:25] VITALS: BP 106/69; PULSE 67; RESP 16; O2SAT 98
[2025-02-05 11:36] VITALS: BP 117/72; PULSE 68; RESP 16; O2SAT 99
== END 2025-02-05 11:47 | disposition home or self-care (01) ==
PROVIDERS: PCP Nurse Practitioner Family; Referring Provider Internal Medicine Gastroenterology; Visit Provider Internal Medicine Gastroenterology
PROC: 0DJD8ZZ Inspection of Lower Intestinal Tract, Via Natural or Artificial Opening Endoscopic (ICD-10-PCS; CPT 45378; principal; 2025-02-05 11:00)
DX: Z09 Encounter for follow-up examination after completed treatment for conditions other than malignant neoplasm (principal); K63.5 Polyp of colon; K64.8 Other hemorrhoids; F17.210 Nicotine dependence, cigarettes, uncomplicated; Z83.719 Family history of colon polyps, unspecified; Z80.0 Family history of malignant neoplasm of digestive organs
CPT/HCPCS: 45385; 88305; J2003; J2704; J7120